=== PATIENT | female | born 1970 | race Hispanic/Latino ===

== ENCOUNTER 2020-09-28 00:50 | Emergency (ER) | payer SELFPAY ==
[~2020-09-28] VITALS: Ht 154.9 cm; Wt 68.0 kg
[2020-09-28 02:58] VITALS: BP 135/65
== END 2020-09-28 03:01 | disposition home or self-care (01) ==
LOC: ER 01:21
DX: S50.12XA Contusion of left forearm, initial encounter (principal); S60.222A Contusion of left hand, initial encounter; W18.30XA Fall on same level, unspecified, initial encounter; Y93.01 Activity, walking, marching and hiking
CPT/HCPCS: 99283